=== PATIENT | female | born 1985 | race Caucasian/White ===

== ENCOUNTER 2017-06-27 18:36 | Emergency (ER) | payer MEDICAID ==
[2017-06-27 18:42] VITALS: BP 117/76; PULSE 95; RESP 17; TEMP 99; O2SAT 95
--- NOTE | 2017-06-27 20:09 | EDPHY ---
H & P Stated Complaint: INFECTED SKIN LESION LOWER ABD Time Seen by Provider: 06/27/17 19:20 HPI/ROS: CHIEF COMPLAINT: Possible abscess HISTORY OF PRESENT ILLNESS: The patient presents to the ED for evaluation of a possible abscess on her lower abdominal wall. The patient has a history of folliculitis in the past. It is been occurring more frequently over the past 6 months. The patient denies any additional current lesions. She denies additional past medical history. She denies prior history of diabetes or IV drug use. The patient has recently been incarcerated. REVIEW OF SYSTEMS: A comprehensive 10 point review of systems is otherwise negative aside from elements mentioned in the history of present illness. Source: Patient Exam Limitations: No limitations - Personal History LMP (Females 10-55): IUD In Place Current Tetanus/Diphtheria Vaccine: Yes - Medical/Surgical History Hx Asthma: No Hx Chronic Respiratory Disease: No Hx Diabetes: No Hx Cardiac Disease: No Hx Renal Disease: No Hx Cirrhosis: No Hx Alcoholism: No Hx HIV/AIDS: No Hx Splenectomy or Spleen Trauma: No Other PMH: DENIES - Social History Smoking Status: Never smoked - Physical Exam Exam: General Appearance: Alert, no distress Eyes: Pupils equal and round no pallor or injection ENT, Mouth: Mucous membranes moist Respiratory: There are no retractions, lungs are clear to auscultation Cardiovascular: Regular rate and rhythm Gastrointestinal: Abdomen is soft and nontender, no masses, bowel sounds normal Neurological: 5/5 strength all 4 extremities Skin: Small 1 cm abscess/folliculitis to lower abdominal wall with minimal surrounding erythema Musculoskeletal: Neck is supple nontender Extremities: symmetrical, full range of motion Constitutional: Initial Vital Signs Temperature (C) 37.2 C 06/27/17 18:39 Heart Rate 95 06/27/17 18:39 Respiratory Rate 17 06/27/17 18:39 Blood Pressure 117/76 06/27/17 18:39 O2 Sat (%) 95 06/27/17 18:39 O2 Delivery Mode Room Air Allergies/Adverse Reactions: No Known Allergies Allergy (Unverified 06/27/17 18:38) Home Medications: Medication Instructions Recorded Cymbalta 06/27/17 Doxepin HCl 06/27/17 Strattera 06/27/17 Sulfamethox/Tmp 800/160 mg 1 tab PO BID #20 tab 06/27/17 [Bactrim DS] Wellbutrin 100mg (*) 06/27/17 Medical Decision Making Procedures: Procedure: Abscess drainage. The patient's abscess was located on the body part. Risks, benefits, alternatives discussed with the patient and consent obtained. The abscess was incised with a #11 blade and scant purulent drainage was expressed. The patient tolerated the procedure well. The procedure was performed by myself. ED Course/Re-evaluation: The small abscess was drained. There is no significant cavity to pack. The patient will be started on oral Bactrim. Differential Diagnosis: Differential diagnosis considered includes insect bite, cellulitis, abscess Departure - Departure Disposition: Home, Routine, Self-Care Clinical Impression: Abdominal wall abscess Condition: Good Instructions: Abscess (ED) Additional Instructions: 1. Take antibiotics as directed for next 7 days. 2. Return to the ED for increased pain, redness or swelling. Referrals: [facility] ESTRADA,. [Clinic] - As per Instructions
== END 2017-06-27 20:35 | disposition home or self-care (01) ==
PROC: 0H97XZZ Drainage of Abdomen Skin, External Approach (ICD-10-PCS; principal; 2017-06-27)
DX: L02.211 Cutaneous abscess of abdominal wall (principal)

== ENCOUNTER 2017-07-01 16:40 | Emergency (ER) | payer MEDICAID ==
[2017-07-01 17:01] VITALS: BP 126/77
--- NOTE | 2017-07-01 17:28 | EDPHY ---
H & P Time Seen by Provider: 07/01/17 17:11 HPI/ROS: CHIEF COMPLAINT: Recheck abscess HISTORY OF PRESENT ILLNESS: 31-year-old female presents to the emergency department with recheck of an abscess to her right abdominal wall. She was seen in the emergency department 2 days ago and had incision and drainage. She was started on Bactrim. She states that it is improved although still continues to drain purulent drainage. She did not have packing placed. ROS: No fevers or chills. No abdominal pain. No pain in her groin. Past Medical/Surgical History: IUD Social History: Single Smoking Status: Never smoked Physical Exam: On examination the patient has open wound noted to the right lower quadrant of the abdomen. It appears superficial. There is some surrounding induration and it is minimally tender to palpate. There is no purulent drainage is expressed. Her remainder of her abdomen is soft. She has no lymphangitis. No CVA tenderness. Constitutional: Initial Vital Signs Temperature (C) 36.8 C 07/01/17 16:59 Heart Rate 95 07/01/17 16:59 Respiratory Rate 17 07/01/17 16:59 Blood Pressure 126/77 H 07/01/17 16:59 O2 Sat (%) 97 07/01/17 16:59 O2 Delivery Mode Room Air Allergies/Adverse Reactions: No Known Allergies Allergy (Verified 07/01/17 16:59) Home Medications: Medication Instructions Recorded Cymbalta 06/27/17 Doxepin HCl 06/27/17 Strattera 06/27/17 Sulfamethox/Tmp 800/160 mg 1 tab PO BID #20 tab 06/27/17 [Bactrim DS] Wellbutrin 100mg (*) 06/27/17 MDM/Departure - MDM Procedures: After consent was obtained from the patient, small amount of 1% lidocaine with epinephrine was instilled into the wound. Purulent drainage was expressed. I do not think packing is indicated. ED Course/Re-evaluation: 31-year-old female with recheck of an abscess to her right abdominal wall. The patient will soak the wound with warm water as discussed. She will continue her antibiotics. She was instructed to return if she developed fever, increasing pain or any other concerns. - Depart Disposition: Home, Routine, Self-Care Clinical Impression: Abscess of abdominal wall Condition: Good Instructions: Abscess (ED) Additional Instructions: Continue Bactrim as directed. Warm soaks 15-20 minutes every 2-3 hours especially today and tomorrow. Return to the emergency department if you develop fever, increasing pain, swelling, or if you feel worse in any way. Referrals: Jeniffer Abdi PA [Primary Care Provider] - 2-3 days, if not improved
== END 2017-07-01 17:42 | disposition home or self-care (01) ==
DX: L02.211 Cutaneous abscess of abdominal wall (principal)